=== PATIENT | female | born 1990 | race American Indian/Alaskan Native ===

== ENCOUNTER 2020-11-25 09:21 | Inpatient (IN) | payer OTHER ==
--- NOTE | 2020-11-25 08:10 | History and Physical Report ---
History of Present Illness Date of examination: 11/25/20 Chief complaint: scheduled section History of present illness: Pt is a 30 year old female AUBREY 12/02/20 at 39w0d with one prior who presents for scheduled section. She reports irregular contractions, and denies vaginal bleeding or leakage of fluid. She has had care at [facility] since 12 wks complicated by insomnia and PTSD s/p sleep specialist, silent alpha thalassemia carier and increased carrier risk for SMA, h/o preeclampsia and delivery. She is GBS Positive. Past History Past Medical History: other (Anxiety) Past Surgical History: section (2018) Family/Genetic History: none Social history: no significant social history - Obstetrical History Expected Date of Delivery: 12/02/20 Actual Gestation: 39 Week(s) 0 Day(s) : 2 Para: 1 Hx # Term Pregnancies: 0 Number of Pregnancies: 1 Spontaneous Abortions: 0 Induced : 0 Number of Living Children: 1 Review of Systems All systems: negative - Physical Exam Breasts: Positive: deferred Abdomen: Positive: soft (gravid ) Uterus: Positive: enlarged (gravid ) - Obstetrical FHR: auscultation normal Uterine Contraction Monitor Mode: External Uterine Contraction Pattern: Absent Uterine Tone Measurement Phase: Resting Results All other labs normal. Assessment and Plan A: IUP at 39w0d Previous x 1 H/o Preeclampsia H/o Delivery Silent Alpha-Thalassemia carrier Increased carrier risk for SMA GBS Positive P: Proceed with repeat section and other indicated procedures
[~2020-11-25 09:21] MED LIST: BICITRA ORAL LIQD 30ML PO NR; FAMOTIDINE 20 MG/2 ML INJ IV NR; LACTATED RINGERS 1,000 ML IV SCH; METOCLOPRAMIDE 10 MG/2 ML INJ IV NR; OXYTOCIN DRIP 30 UNITS/500 ML BAG IV SCH; ceFAZolin/Water 2 GM/20 ML 2 GM/20 ML SYRINGE IV NR
[2020-11-25] MEDS ORDERED: diphenhydrAMINE 50 MG/ML VIAL IV PRN (09:36)
[2020-11-25] MEDS ORDERED: ONDANSETRON 4 MG/2 ML INJ IV PRN (09:36)
[2020-11-25] MEDS ORDERED: NALOXONE 0.4 MG/1 ML INJ IV PRN ×2 (09:36→15:22)
[2020-11-25] MEDS ORDERED: NalbUPHINE 10 MG/1 ML INJ IV PRN (09:36)
[2020-11-25 11:24] LABS: Basophils % (Auto) 0.2 % (0.0-1.8); Eosinophils % (Auto) 0.1 % (0.0-4.3); Hematocrit 35.2 % (30.3-42.9); Hemoglobin 11.9 gm/dl (10.1-14.3); Lymphocytes # (Auto) 1.2 K/mm3 (1.2-5.4); Mean Corpuscular HGB Conc 34 % (30-34); Mean Corpuscular Volume 99 fl (79-97); Monocytes # (Auto) 0.9 K/mm3 (0.0-0.8); Monocytes % (Auto) 8.8 % (0.0-7.3); Platelet Count 162 K/mm3 (140-440); Red Blood Count 3.55 M/mm3 (3.65-5.03); Red Cell Distribution Width 12.8 % (13.2-15.2)
[2020-11-25] MEDS ORDERED: PROMETHAZINE 25 MG TAB PO PRN (11:30)
[2020-11-25] MEDS ORDERED: PROMETHAZINE 25 MG RECT SUPP PR PRN (11:30)
--- NOTE | 2020-11-25 11:37 | Anesthesia Day of Surgery ---
Anesthesia Day of Surgery - Day of Surgery Patient Examined: Yes Patient H&P Reviewed: Yes Patient is NPO: Yes Beta Blockers: No Cardiac Clearance: No Pulmonary Clearance: No Brent's Test: N/A
--- NOTE | 2020-11-25 11:38 | Anesthesia Consultation ---
Anesthesia Consult and Med Hx Date of service: 11/25/20 - Airway Anesthetic Teeth Evaluation: Good ROM Head & Neck: Adequate Mental/Hyoid Distance: Adequate Mallampati Class: Class II Intubation Access Assessment: Probably Good - Pulmonary Exam CTA: Yes - Cardiac Exam Cardiac Exam: RRR - Pre-Operative Health Status ASA Pre-Surgery Classification: ASA2 Proposed Anesthetic Plan: Spinal Nerve Block: TAP - Pulmonary Hx Smoking: No Hx Asthma: No Hx Sleep Apnea: No - Cardiovascular System Hx Hypertension: No Hx Heart Attack/AMI: No Hx Angina: No - Central Nervous System Hx Seizures: No - Gastrointestinal Hx Gastroesophageal Reflux Disease: No - Endocrine Hx Renal Disease: No Hx Liver Disease: No Hx Insulin Dependent Diabetes: No Hx Non-Insulin Dependent Diabetes: No
[2020-11-25] MEDS ORDERED: KETOROLAC 30 MG/1 ML INJ ONE (11:39)
[2020-11-25] MEDS ORDERED: ONDANSETRON 4 MG/2 ML INJ ONE (11:39)
[2020-11-25] MEDS ORDERED: dexAMETHasone 20 MG/5 ML VIAL ONE (11:39)
[2020-11-25] MEDS ORDERED: BUPIVACAINE/PF (0.5%) 5 MG/1 ML 30 ML VIAL INFILTRATI ONE (11:39)
[2020-11-25] MEDS ORDERED: ceFAZolin/STERILE WATER 2 GM/20 ML SYRINGE IV ONE (12:10)
[2020-11-25] MEDS ORDERED: ePHEDrine SULFATE 50 MG/1 ML INJ ONE (12:12)
[2020-11-25] MEDS ORDERED: WATER FOR IRRIG STERILE 1,500 ML BOTTLE IR ONE (12:30)
[2020-11-25] MEDS ORDERED: SODIUM CHLORIDE 0.9% IRR 1,500 ML BOTTLE IR ONE (12:30)
[2020-11-25] MEDS ORDERED: LACTATED RINGERS 1,000 ML ONE (12:47)
--- NOTE | 2020-11-25 13:30 | Procedure Note ---
OB Delivery Note - Delivery Date of Delivery: 11/25/20 Surgeon: JOVANNY MELENDREZ Estimated blood loss: other - Section Preop diagnosis: repeat Postop diagnosis: same section procedure: section, repeat low transverse Disposition: PACU Complications: none Narrative: Please see operative report - Infant A at 1 minute: 8 at 5 minutes: 8 Gender: Female (3186g (7lb 0oz) @ 1239 pm)
--- NOTE | 2020-11-25 13:34 | Operative Report ---
Operative Report Operative Report: Date of procedure: November 25, 2020 Preoperative diagnosis: 1) IUP at 39w0d 2) Previous x 1 Postoperative diagnosis: Same Procedure: Repeat low transverse section Surgeon: Nimo Crenshaw M.D. Anesthesia: Regional Findings: 1) Viable female , Apgars 8 and 8, weight 3186 g, ([7 lb 0 oz) in cephalic presentation. 2) Normal-appearing uterus ovaries and tubes Estimated blood loss: 700 mL IV fluids: 1300 mL Urine output: 100 mL, clear at the end of the procedure Drains: Steele to gravity Specimens: None Complications:None. Counts correct x 3 Disposition: Stable to PACU Indication for procedure: Pt is a 30 year old at 39w0d with a h/o prior section presents for repeat section. Operation in detail: After the risks, benefits, alternatives and complications were explained to the patient she gave informed consent for the procedure. She was subsequently taken to the operating room where regional anesthesia was noted to be adequate. She was placed in the dorsal supine position with leftward tilt and prepped and draped in a normal sterile fashion. heart tones were noted prior to incision. A timeout was performed. A Pfannenstiel skin incision was made with the knife and carried down to the layer of the fascia with the Bovie. The fascia was incised in the midline and the fascial incision was extended bilaterally with the Bovie. The fascial incision was then stretched. The rectus muscles were then in the midline. The peritoneum was then entered bluntly. The peritoneal incision was extended with good visualization of the bladder. The peritoneal incision was then stretched. An Francesco retractor was placed. The bladder blade was then placed. The vesicouterine peritoneum was grasped with smooth pick ups and incised with Metzenbaum scissors. A bladder flap was then created digitally and the bladder blade was replaced. A transverse incision was made in the lower uterine segment with a knife and extended bilaterally with the bandage scissors. Amniotomy was performed with egress of clear fluid. head delivered with ease, followed by shoulders and body. bulb suctioned at delivery. Cord clamped and cut. handed to NICU staff in attendance. The placenta was then delivered manually. The uterus was then exteriorized and cleared of all clots and debris. The hysterotomy was then reapproximated with 0 Vicryl in a running locked fashion. A second layer of the same suture was used in imbricating fashion. The hysterotomy was inspected and hemostasis was noted. A figure of eight of 0 Monocryl was placed at the center of the incision for hemostasis. The gutters were irrigated and cleared of all clots and debris. The Francesco retractor was removed. The uterus was placed back into the peritoneal cavity. The hysterotomy was again inspected and noted to be hemostatic. Surgicel was placed over the hysterotomy. The peritoneum was reapproximated with 2-0 Vicryl in a running fashion incorporating the rectus muscles. Surgicel was placed over the rectus muscles. The fascia was reapproximated with 0 Vicryl in a running fashion. The skin was reapproximated with 4-0 Vicryl in a subcuticular fashion. The incision was then covered with steri strips and a pressure dressing. The procedure was t hen ended. The patient tolerated the procedure well and was taken to the PACU in stable condition. All instrument, lap, and needle counts were correct 3.
--- NOTE | 2020-11-25 13:58 | Progress Note ---
Spinal Anesthesia Block - Spinal Anesthesia Block Start Time: 11:55 Stop Time: 12:10 Performed by:: NEHEMIAS BERTRAND Procedure: Spinal anesthesia block is being performed for [C/S]. H&P, labs have been reviewed. Patient's questions and concerns have been answered. Informed consent has been performed. Timeout has was performed. Patient in sitting position on side of bed. Sterile prep and drape was performed. 3 mL 1% lidocaine skin wheal at L [3]-L [4]. Needle introducer advanced. 25-gauge spinal needle advanced, [+] CSF [-] blood. [Marcaine 10mg and Precedex 5mcg] Spinal dose was given. All needles removed. Patient tolerated procedure well.
--- NOTE | 2020-11-25 13:59 | Progress Note ---
Regional Anesthesia Block - Regional Anesthesia Block Start Time: 13:37 Stop Time: 13:45 Performed By:: NEHEMIAS BERTRAND Procedure: Patient consented for TAP block for post surgical pain management. Patient identified, monitors placed, and time out performed. Mid axillary TAP identified bilaterally via ultrasound. Skin prepped bilaterally with [chlorhexidine] and [20g stimuplex] needle advanced to the TAP. 35ml [Marcaine 0.215% with 25mcg Precedex and Decadron 5mg] injected under ultrasound guidance on the [left] side. 35ml [Marcaine 0.215% with 25mcg Precedex and Decadron 5mg] injected under ultrasound guidance on the [right] side. Negative aspiration every 5mL, Patient tolerated the procedure well. No apparent complications seen.
[2020-11-25] MEDS ORDERED: MAGNESIUM HYDROXIDE (MOM) ORAL LIQD UDC PO PRN (15:22)
[2020-11-25] MEDS ORDERED: OXYTOCIN DRIP 30 UNITS/500 ML BAG IV SCH (15:22)
[2020-11-25] MEDS ORDERED: WITCH HAZEL/ GLYCERIN PAD TP PRN (15:22)
[2020-11-25] MEDS ORDERED: IBUPROFEN 800 MG TAB PO PRN (15:22)
[2020-11-25] MEDS ORDERED: LANOLIN/ZINC/DIMETHICONE (LANSINOH) 7 GM TP PRN (15:22)
[2020-11-25] MEDS ORDERED: MORPHINE 2 MG/1 ML INJ IV PRN (15:22)
[2020-11-25] MEDS ORDERED: MORPHINE 4 MG/1 ML INJ IV PRN (15:22)
[2020-11-25] MEDS ORDERED: SIMETHICONE 80 MG CHEW TAB PO PRN (15:22)
[2020-11-25] MEDS: HYDROmorphone 1 MG/1 ML INJ IV PRN ×2 (18:02→22:47)
[2020-11-25] MEDS: D5W/LACTATED RINGERS 1,000 ML IV SCH (18:07)
[2020-11-25] MEDS: ceFAZolin/NS 1 GM/50 ML 1 GM/50 ML BAG IV SCH (20:03)
[2020-11-25] MEDS: KETOROLAC 30 MG/1 ML INJ IV SCH (21:53)
[2020-11-26] MEDS: oxyCODONE /ACETAMINOPHEN 5-325MG TAB PO PRN ×5 (02:36→21:15)
[2020-11-26] MEDS: D5W/LACTATED RINGERS 1,000 ML IV SCH (02:48)
[2020-11-26] MEDS: KETOROLAC 30 MG/1 ML INJ IV SCH ×3 (04:04→19:21)
[2020-11-26] MEDS: ceFAZolin/NS 1 GM/50 ML 1 GM/50 ML BAG IV SCH (04:04)
[2020-11-26 06:17] LABS: Hematocrit 34.3 % (30.3-42.9); Hemoglobin 11.3 gm/dl (10.1-14.3)
[2020-11-26] MEDS ORDERED: TETANUS,DIPH,PERTUSS(ACELL) VACCINE 0.5 ML SYRINGE IM ONE (06:35)
[2020-11-26] MEDS: FERROUS SULFATE 325 MG TAB PO SCH (10:47)
[2020-11-26] MEDS ORDERED: MEASLES, MUMPS & RUBELLA 12,500 UNIT/0.5 ML VACCINE SUB-Q ONE (13:35)
--- NOTE | 2020-11-26 13:58 | Post Anesthesia Evaluation ---
- Post Anesthesia Evaluation Patient Participated: Yes Airway Patent: Yes Stable Respiratory Function: Yes Nausea/Vomiting: No Temp > 96.8F: Yes Pain Manageable: Yes Adequeate Hydration: Yes Anesthesia Complications: No Block Receding Appropriately: Yes Patient on Ventilator: No
--- NOTE | 2020-11-26 16:22 | Progress Note ---
Assessment and Plan A: POD #1 s/p repeat section at term P: Routine postoperative care Subjective - Subjective Date of service: 11/26/20 Principal diagnosis: s/p repeat at term Interval history: Pt unable to sleep well because her baby is still in the NICU. + minimal flatus. Patient reports: appetite normal, voiding normally, pain well controlled, flatus, ambulating normally, no bowel movement [place]: in NICU Objective - Vital Signs Latest vital signs: Vital Signs Temp Pulse Resp BP BP Pulse Ox 11/26/20 08:55 98.0 F 82 18 116/78 99 11/26/20 07:51 18 11/26/20 06:51 18 11/26/20 04:34 18 11/26/20 04:04 18 11/26/20 04:00 98.6 F 74 18 103/71 11/26/20 03:36 18 11/26/20 02:36 20 11/26/20 00:26 98.2 F 67 18 105/60 96 11/25/20 23:17 18 11/25/20 22:47 20 11/25/20 22:23 18 11/25/20 21:53 18 11/25/20 21:41 98.0 F 69 18 110/62 98 Intake and Output 11/26/20 11/26/20 11/26/20 06:59 14:59 22:59 Intake Total 1560 Output Total 2350 600 Balance -790 -600 Intake: IV 1000 D5lr 1,000 ml @ 125 mls/ 1000 hr IV DIRECT DONOVAN Rx#: [id number] Oral 200 Intake, Free Water 360 Output: Urine 2350 600 Indwelling Catheter 700 Void 1650 600 Other: Total, Intake Amount 200 Total, Output Amount 550 600 # Voids Void 1 1 - Exam Breasts: Present: deferred Abdomen: Present: soft, distention (mild ) Uterus: Present: fundal height at umbilicus Extremities: Present: normal Incision: Present: dressed
[2020-11-26] MEDS ORDERED: KETOROLAC 30 MG/1 ML INJ ONE ×2 (16:27→19:11)
[2020-11-27] MEDS: IBUPROFEN 800 MG TAB PO SCH ×5 (02:27→23:34)
[2020-11-27] MEDS: oxyCODONE /ACETAMINOPHEN 5-325MG TAB PO PRN ×3 (02:28→20:30)
--- NOTE | 2020-11-27 07:58 | Progress Note ---
Assessment and Plan A: POD #2 s/p repeat section at term Suboptimal pain control P: Routine postoperative care Optimize pain regimen Subjective - Subjective Date of service: 11/27/20 Principal diagnosis: s/p repeat at term Interval history: Pt has passed flatus, but still has not had a bowel movement. She reports gas pain overnight. She is pumping now. Patient reports: voiding normally, flatus, pain poorly controlled, ambulating normally, no bowel movement [place]: in NICU Objective - Vital Signs Latest vital signs: Vital Signs Temp Pulse Resp BP BP Pulse Ox 11/27/20 06:42 20 11/27/20 02:28 20 11/26/20 23:49 97.6 F 69 20 110/68 98 11/26/20 21:15 20 11/26/20 15:45 98.6 F 78 17 107/61 98 11/26/20 08:55 98.0 F 82 18 116/78 99 Intake and Output 11/26/20 11/27/20 11/27/20 22:59 06:59 14:59 Intake Total 840 Balance 840 Intake: Oral 480 Intake, Free Water 360 Other: Total, Intake Amount 480 # Voids Void 1 - Exam Breasts: Present: deferred Abdomen: Present: soft, distention (mild ) Uterus: Present: fundal height at umbilicus Extremities: Present: normal Incision: Present: dressed
[2020-11-27] MEDS: FERROUS SULFATE 325 MG TAB PO SCH (09:06)
[2020-11-27] MEDS: DOCUSATE SODIUM 100 MG CAP PO SCH (23:33)
[2020-11-28] MEDS: oxyCODONE /ACETAMINOPHEN 5-325MG TAB PO PRN ×4 (04:08→19:57)
[2020-11-28] MEDS: IBUPROFEN 800 MG TAB PO SCH ×3 (06:05→18:01)
--- NOTE | 2020-11-28 09:08 | Progress Note ---
Assessment and Plan d/c to home Laina Antonio MD Subjective - Subjective Date of service: 11/28/20 Principal diagnosis: s/p repeat at term Patient reports: appetite normal, voiding normally, pain well controlled, ambulating normally : doing well Objective - Vital Signs Latest vital signs: Vital Signs Temp Pulse Resp BP Pulse Ox 11/28/20 01:43 97.3 F L 64 20 117/77 98 11/27/20 18:27 16 11/27/20 17:59 16 11/27/20 16:31 98.2 F 69 18 133/77 99 11/27/20 12:46 16 Intake and Output 11/27/20 11/28/20 11/28/20 23:59 07:59 15:59 Intake Total 360 240 Balance 360 240 Intake: Oral 360 240 Other: Total, Intake Amount 240 120 # Voids Void 1 1 - Exam Breasts: Present: deferred Cardiovascular: Present: Regular rate Lungs: Present: Clear to auscultation Abdomen: Present: normal appearance, soft, normal bowel sounds Uterus: Present: fundal height at umbilicus Extremities: Present: normal Deep Tendon Reflex Grade: Normal but brisk +3 Incision: Present: normal, intact, dressed - Labs Labs: Abnormal lab results 11/26/20 Range/Units 09:00 Coronavirus (PCR) Positive A (Negative)
--- NOTE | 2020-11-28 09:42 | Discharge Summary ---
Providers - Providers Date of Admission: 11/25/20 09:21 Date of discharge: 11/28/20 Attending physician: JOVANNY MELENDREZ 11/25/20 15:22 Consult to Welding Foreman [CONS] Routine Reason For Exam: Primary care physician: JOVANNY MELENDREZ Hospitalization Delivery: Condition at discharge: Stable Disposition: DC-01 TO HOME OR SELFCARE Plan - Discharge Medications Prescriptions: Ibuprofen [Motrin] 600 mg PO Q8H PRN #60 tablet PRN Reason: Pain oxyCODONE /ACETAMINOPHEN [Percocet 5/325] 1 tab PO Q6HR PRN #20 tablet PRN Reason: Pain - Provider Discharge Summary Additional instructions: [] Smoking cessation referral if applicable(refer to patient education folder for contact #) [] Refer to [facility] Booklet Call your doctor immediately for: * Fever > 100.5 * Heavy vaginal bleeding ( >1 pad per hour) * Severe persistent headache * Shortness of breath * Reddened, hot, painful area to leg or breast * Drainage or odor from incision. * Keep incision clean and dry at all times and follow doctor's instructions regarding bathing/showering - Follow up plan Follow up: JOVANNY MELENDREZ MD [Primary Care Provider] - 14 Days
[2020-11-28] MEDS: FERROUS SULFATE 325 MG TAB PO SCH (09:54)
[2020-11-28] MEDS: DOCUSATE SODIUM 100 MG CAP PO SCH ×2 (09:54→22:00)
--- NOTE | 2020-11-28 20:34 | Event Note ---
Date: 11/28/20 discharged help for psych consult in [facility] Antonio MD
[2020-11-29] MEDS: oxyCODONE /ACETAMINOPHEN 5-325MG TAB PO PRN ×2 (01:56→10:30)
[2020-11-29] MEDS: DOCUSATE SODIUM 100 MG CAP PO SCH ×2 (01:56→10:33)
[2020-11-29] MEDS: IBUPROFEN 800 MG TAB PO SCH ×2 (06:30)
[2020-11-29 08:38] VITALS: BP 124/65
[2020-11-29] MEDS: FERROUS SULFATE 325 MG TAB PO SCH (10:34)
--- NOTE | 2020-11-29 11:15 | Consultation ---
History of Present Illness - Reason for Consult Consult date: 11/29/20 Reason for consult: low score on edenburg - History of Present Psychiatric Illness Jc Pedro is a 30y/o female admitted for a scheduled . During my interview with the patient she is calm, cooperative. She is polite. Her is at bedside with her. The patient says she has a history of PTSD and anxiety, in which she sees a psychiatrist for. She says she has an appointment next week. She says it was a hectic week leading up to the so she says she thinks that why the score on the test. The patient denies SI/HI or any fear of endangerment. She also denies hallucinations of any kind. She denies any illicit drug use, alcohol or nicotine. PAST PSYCHIATRIC HISTORY: Diagnoses: PTSD, anxiety Suicide attempts or Self-harm behavior: Denies Prior psychiatric hospitalizations: Denies Substance Abuse history: Denies Previous psychiatric medications tried: been off since Outpatient treatment: yes PAST MEDICAL HISTORY: None reported Family Psychiatric History: None reported or documented SOCIAL HISTORY Marital Status: Living Arrangements: with her spouse Employment Status: Employed Access to guns/weapons: Denies Education: [employer] History of Abuse: Denies Legal History: Denies REVIEW OF SYSTEMS Constitutional: Negative for weight loss ENT: Negative for stridor Respiratory: Negative for cough or hemoptysis All other systems reviewed and are negative MENTAL STATUS EXAMINATION General Appearance and Behavior: Age appropriate, good hygiene, not wearing appropriate clothes, good eye contact, calm and cooperative Cooperation: Participating Psychomotor Behavior: Psychomotor normal Mood: "good" Affect and affective range: Congruent with stated mood Thought Process: goal directed Speech: Normal tone and pace Thought Content Suicidal Ideation: Denies Homicidal Ideation: Denies Hallucinations: Denies Delusions: None elicited Impulse Control: Normal Insight and Judgment: Normal insight and judgment Memory: Normal Attention: Undivided attention Orientation: A/o x 3 Assessment and Plan (1) Mental Health Eval Current Visit: Yes Status: Acute Treatment Plan No meds prescribed at this time, the patient has an appointment with her outpatient psychiatrist next week Sitter: defer to primary Medical: Per primary Disposition: Do not recommend acute psychiatric inpatient Will sing off. Thank you for this consult Case staffed with Dr. Washington Medications and Allergies Allergies Allergy/AdvReac Type Severity Reaction Status Date / Time No Known Allergies Allergy Unverified 11/25/20 11:00 Home Medications Medication Instructions Recorded Confirmed Last Taken Type Ibuprofen [Motrin] 600 mg PO Q8H PRN #60 tablet 11/28/20 Unknown Rx oxyCODONE /ACETAMINOPHEN [Percocet 1 tab PO Q6HR PRN #20 tablet 11/28/20 Unknown Rx 5/325] Active Meds: Active Medications Diphenhydramine HCl (Diphenhydramine 50 Mg/Ml Vial) 12.5 mg IV Q2H PRN PRN Reason: Itching Docusate Sodium (Docusate Sodium 100 Mg Cap) 100 mg PO BID [facility] Last Admin: 11/29/20 10:33 Dose: 100 mg Documented by: Ferrous Sulfate (Ferrous Sulfate 325 Mg Tab) 325 mg PO QDAY [facility] Last Admin: 11/29/20 10:34 Dose: 325 mg Documented by: Hydromorphone HCl (Hydromorphone 1 Mg/1 Ml Inj) 0.5 mg IV Q4H PRN PRN Reason: breakthrough pain > 7/10 Last Admin: 11/25/20 22:47 Dose: 0.5 mg Documented by: Oxytocin/Sodium Chloride (Pitocin/Ns 30 Unit/500ml) 30 units in 500 mls @ 40 mls/hr IV TITR [facility]; Protocol Dextrose/Lactated Ringer's (D5lr) 1,000 mls @ 125 mls/hr IV DIRECT DONOVAN Last Admin: 11/26/20 02:48 Dose: 125 mls/hr Documented by: Ibuprofen (Ibuprofen 800 Mg Tab) 800 mg PO Q6HR [facility] Last Admin: 11/29/20 06:30 Dose: 800 mg Documented by: Magnesium Hydroxide (Magnesium Hydroxide (Mom) Oral Liqd Udc) 30 ml PO QHS PRN PRN Reason: Constip Unrelieved By Senna Last Admin: 11/27/20 02:30 Dose: 30 ml Documented by: Morphine Sulfate (Morphine 4 Mg/1 Ml Inj) 4 mg IV Q4H PRN PRN Reason: Pain , Severe (7-10) Morphine Sulfate (Morphine 2 Mg/1 Ml Inj) 2 mg IV Q4H PRN PRN Reason: Pain, Moderate (4-6) Last Admin: 11/25/20 15:37 Dose: 2 mg Documented by: Multi-Ingredient Ointment (Lanolin/Zinc/Dimethicone (Lansinoh) 7 Gm) 1 applic TP PRN PRN PRN Reason: dryness/cracking Nalbuphine HCl (Nalbuphine 10 Mg/1 Ml Inj) 2.5 mg IV Q2H PRN PRN Reason: Itching Naloxone HCl (Naloxone 0.4 Mg/1 Ml Inj) 0.1 mg IV Q2MIN PRN PRN Reason: Res Rate </= 8 or 02 SAT < 92% Ondansetron HCl (Ondansetron 4 Mg/2 Ml Inj) 4 mg IV Q8H PRN PRN Reason: Nausea And Vomiting Oxycodone/Acetaminophen (Oxycodone /Acetaminophen 5-325mg Tab) 2 tab PO Q4H PRN PRN Reason: Pain, Moderate (4-6) Last Admin: 11/29/20 10:30 Dose: 2 tab Documented by: Promethazine HCl (Promethazine 25 Mg Tab) 25 mg PO Q6H PRN PRN Reason: Nausea And Vomiting Promethazine HCl (Promethazine 25 Mg Rect Supp) 25 mg [place] Q6H PRN PRN Reason: Nausea And Vomiting Simethicone (Simethicone 80 Mg Chew Tab) 80 mg PO Q6H PRN PRN Reason: Gas pain Last Admin: 11/26/20 17:17 Dose: 80 mg Documented by: Sodium Chloride (Sodium Chloride 0.9% 10 Ml Flush Syringe) 10 ml IV PRN DONOVAN Witch Chelsey/Glycerin (Witch Chelsey/ Glycerin Pad) 1 each TP PRN PRN PRN Reason: Hemorrhoids/cleansing/soothing Mental Status Exam - Vital signs Last Vital Signs Temp 97.7 F 11/29/20 08:20 Pulse 64 11/29/20 08:20 Resp 17 11/29/20 08:20 BP 124/65 11/29/20 08:20 Pulse Ox 98 11/29/20 08:20 Results Result Diagrams: 11/26/20 05:19 All other labs normal.
== END 2020-11-29 12:00 | disposition home or self-care (01) | DRG 788 ==
LOC: APU 09:21 → LD 11:07 → APU 11:12 → OB 15:00
PROVIDERS: ADMIT Obstetrics & Gynecology; ATTEND Obstetrics & Gynecology
PROC: 10D00Z1 Extraction of Products of Conception, Low, Open Approach (ICD-10-PCS; principal; 2020-11-25)
PROC: 3E0R3BZ Introduction of Anesthetic Agent into Spinal Canal, Percutaneous Approach (ICD-10-PCS; 2020-11-25)
PROC: 3E0134Z Introduction of Serum, Toxoid and Vaccine into Subcutaneous Tissue, Percutaneous Approach (ICD-10-PCS; 2020-11-26)
DX: O34.211 Maternal care for low transverse scar from previous cesarean delivery (principal); O99.824 Streptococcus B carrier state complicating childbirth; Z20.822 Contact with and (suspected) exposure to COVID-19; Z37.0 Single live birth; Z3A.39 39 weeks gestation of pregnancy; Z23 Encounter for immunization
CPT/HCPCS: 36415; 85014; 85018; 85025; 86850; 86900; 86901; 90715; G0378; J0690; J1100; J1170; J1885; J2270; J2405; J2765; J3490; J7120; J7121; U0003